=== PATIENT | male | born 1970 | race Caucasian/White ===

== ENCOUNTER 2020-09-13 18:11 | Emergency (ER) | payer OTHER ==
[~2020-09-13] VITALS: Ht 170.2 cm; Wt 86.2 kg
[2020-09-13 18:20] VITALS: BP_SYST 152
--- NOTE | 2020-09-13 18:20 | NUR ---
Patient to ER bed HALLWAY to gown for evaluation. Side rails up.
--- NOTE | 2020-09-13 18:22 | NUR ---
PT AA[facility] AND AMBULATORY BIB [facility] FOR OKAY TO BOOK AND MEDICAL CLEARANCE. PT DOES NOT CURRENTLY HAVE ANY COMPLAINT.
--- NOTE | 2020-09-13 18:30 | NUR ---
BRENDA ROSARIO at bedside examining patient.
--- NOTE | 2020-09-13 18:38 | NUR ---
Written and verbal consent obtained from patient for blood alcohol, name and verified by patient. Disinfected patient's skin with IODINE that did not contain alcohol or other volatile organic compound. Collected the blood from the subject named by venipuncture, in the presence of Officer HARI. Used a sterile, dry hypodermic needle and dry vacuum blood collection. Two dry vacuum blood collection was supplied by the officer named above. Withdrew a specimen of blood from RIGHT AC of the subject named above. Inverted both blood tubes several times to ensure that the preservative and anticoagulant were thoroughly mixed in the blood specimen. I initialed both blood tube labels for identification. The labeled blood tubes were handed directly to the Officer named above. The blood tubes stopper remained in place while I had possession of the blood tubes. The Officer placed tubes into envelope and sealed it in my presence. Envelope initialed by myself and Officer named above. Patient tolerated well, bandage applied, and bleeding controlled.
[2020-09-13] MEDS ORDERED: metroNIDAZOLE 500 mg/NS 100 ML IV ONE (19:15)
[2020-09-13] MEDS ORDERED: cefTRIAXone 2 GM VIAL IM ONE (19:15)
[2020-09-13 19:16] VITALS: BP_SYST 152
--- NOTE | 2020-09-13 19:16 | NUR ---
Patient given written and verbal discharge instructions and verbalizes understanding. DR. MARLENE GUTIERREZ MD discussed with patient the results and treatment provided. Patient in stable condition. ID arm band removed. Patient educated on pain management and to follow up with PMD. Pain Scale 0/10. Opportunity for questions provided and answered.
== END 2020-09-13 19:16 ==
LOC: SED 18:11
DX: Z02.83 Encounter for blood-alcohol and blood-drug test (principal); Y08.89XA Assault by other specified means, initial encounter; Y93.89 Activity, other specified; Y92.89 Other specified places as the place of occurrence of the external cause; Y99.8 Other external cause status
CPT/HCPCS: 99283